=== PATIENT | male | born 1960 | race Caucasian/White ===

== ENCOUNTER 2017-11-14 05:21 | Inpatient (IN) ==
[2017-11-14] MEDS ORDERED: Aspirin 81 MG TAB.CHEW PO ONE (05:33)
--- NOTE | 2017-11-14 05:39 | Emergency Department Note ---
Disposition Clinical Impression: ST elevation myocardial infarction (STEMI) Qualifiers: Involved coronary artery: unspecified coronary artery Qualified Code(s): I21.3 - ST elevation (STEMI) myocardial infarction of unspecified site Disposition: Admitted As Inpatient Condition: Serious Chest Pain HPI - General Chief Complaint: ED Chest Pain Stated Complaint: CP Time Seen by Provider: 11/14/17 05:27 Source: patient Mode of arrival: private vehicle Limitations: no limitations Vital Signs Reviewed: Yes Nursing Notes Reviewed: Yes - History of Present Illness HPI Narrative: 57-year-old male with a medical history presents to the ER with a chief complaint of chest pain. Reports symptoms began at 2:30 this morning. They woke him from sleep. Reports a dull ache over the center of his chest with radiation into both arms. No prior history of coronary artery disease. He does not smoke. No hypertension diabetes or high cholesterol. Reports a prior stress test but is unsure of the results. States pain has not changed since starting. No other complaints. Pt complaint: chest pain Onset (ago): hour(s) Time: 02:30 Duration: constant Onset: during rest Pain Location: substernal Severity: moderate Severity scale (1-10): 8 Quality: aching Pain Radiation: RUE, LUE Improves with: nothing Worsens with: nothing Associated symptoms: Reports: nausea. Denies: vomiting, diaphoresis, dyspnea Treatments prior to arrival chest pain: aspirin - Related Data On Oral Contraceptives: No Allergies Allergy/AdvReac Type Severity Reaction Status Date / Time Penicillins Allergy See Verified 11/14/17 05:31 Comments All systems ED: reviewed and negative except as stated. Cardiovascular: Reports: chest pain Respiratory: Denies: cough, dyspnea Gastrointestinal: Reports: nausea. Denies: abdominal pain, vomiting Chest Pain PMH - Past Medical History Medical history: Reports: thyroid disease - Social History Smoking Status: Never smoker Alcohol use: Reports: none Drug use: Reports: none Physical Exam - General Limitations: no limitations General appearance: alert, in no apparent distress - Head Head exam: atraumatic, normocephalic - Eye Eye exam: Present: normal appearance - ENT ENT exam: normal exam - Neck Neck exam: Present: normal inspection - Chest Chest inspection: Present: normal inspection, symmetric chest wall rise. Absent : tenderness - Respiratory Respiratory exam: Present: normal lung sounds bilaterally - Cardiovascular Cardiovascular exam: Present: regular rate, normal rhythm, normal heart sounds - Abdominal Exam Abdominal exam: Present: soft, Non-Tender. Absent: tenderness - Extremities Exam Extremities exam: Present: normal inspection, full ROM - Expanded Upper Extremity Exam Shoulder exam: Present: normal inspection, full ROM Arm exam: Present: normal inspection, full ROM Elbow exam: Present: normal inspection, full ROM Forearm/Wrist exam: Present: normal inspection, full ROM Hand exam: Present: normal inspection, full ROM - Expanded Lower Extremity Exam Hip/Pelvis exam: Present: normal inspection, full ROM Upper leg exam: Present: normal inspection, full ROM Knee exam: Present: normal inspection, full ROM Lower leg exam: Present: normal inspection, full ROM Ankle exam: Present: normal inspection, full ROM Foot/toe exam: Present: normal inspection, full ROM - Skin Skin exam: Present: warm, dry Course Course Narrative: Patient seen and examined. Vital signs reviewed. EKG concerning for STEMI. A STEMI alert called at 05:32. EKG sent to scale manager and will speak with them in consultation. - Consultations Consultation #1: Spoke with the on-call scale manager Dr. Oneill. Discussed the patient's history as well as sent him the EKG for evaluation. Agrees with STEMI and will be in to see the patient for left heart catheterization. Okay with aspirin and Brilinta. Vital Signs Temperature 99.1 F 11/14/17 05:26 Pulse Rate 72 11/14/17 05:26 Respiratory Rate 18 11/14/17 05:26 Blood Pressure 182/115 11/14/17 05:26 O2 Sat by Pulse Oximetry 99 11/14/17 05:26 Temperature 99.1 F 11/14/17 05:26 Pulse Rate 66 11/14/17 06:01 Respiratory Rate 18 11/14/17 06:01 Blood Pressure 155/100 11/14/17 06:01 O2 Sat by Pulse Oximetry 97 11/14/17 06:01 Oxygen Delivery Oxygen Delivery Room Air Chest Pain - MDM Narrative Medical decision making narrative: 57-year-old male presents to the ER with a chief complaint of chest pain. We will confirm sleep. Concerning story for ACS. EKG with ST elevations and reciprocal changes. Case discussed with the scale manager. Agreeable with taking the patient to the Environmental Educator for evaluation. - Lab Data Result diagrams: 11/14/17 05:45 Lab Results 11/14/17 11/14/17 Range/Units 05:45 05:45 WBC 12.2 H (4.3-11.1) K/mcL RBC 3.76 L (4.19-5.50) M/mcL Hgb 11.5 L (12.9-16.9) g/dL Hct 34.0 L (37.5-50.1) % MCV 90.4 (83.0-100.0) fL MCH 30.6 (28.0-33.3) pg MCHC 33.8 (31.6-35.5) g/dL RDW 13.5 (11.5-14.5) % Plt Count 248 (140-400) K/mcL MPV 10.8 (9.4-12.4) fL Immature Gran % 0.3 (0-4) % Seg Neutrophils % 55.2 % Lymphocytes % 20.3 % Monocytes % 8.2 % Eosinophils % 15.3 % Basophils % 0.7 % Neutrophils # 6.7 (1.6-8.9) K/mcL Lymphocytes # 2.5 (0.6-4.6) K/mcL Monocytes # 1.0 (0.0-1.3) K/mcL Eosinophils # 1.9 H (0.0-0.6) K/mcL Basophils # 0.1 (0.0-0.2) K/mcL PT 11.6 (9.4-12.1) Seconds INR 1.1 APTT 31.9 (26.0-36.0) Seconds - EKG Data EKG attestation: Yes I reviewed and interpreted this EKG. EKG results narrative: EKG demonstrates sinus rhythm with a rate of 67 bpm. Normal axis. Normal intervals. Normal R-wave progression. ST elevations in leads V1V4 with reciprocal changes in the inferior leads with T-wave inversions. No prior EKG for comparison. STEMI Heart Score - Score History: Highly Suspicious EKG: Non Specific repolarisation Disturbance Age: 45-65 Risk Factors: No risk factors known Critical Care Time Critical Care Time: Yes Total Critical Care Time: 40 Attestation: Critical care performed: Time is exclusive of separately billable procedures. Time includes: direct patient care, patient reassessment, coordination of patient care, interpretation of data (laboratory data, radiology data, and respiratory data), review of patient's medical records, medical consultation and documentation of patient care. Procedures included in critical care time: Procedures excluded from critical care time: Attestation Statement - Attestation Attestation: I, Jin Cotton MD, personally evaluated this patient and discussed their management with the resident physician. I reviewed the resident's note and agree with the documented findings, medical decision making, and plan of care. 57-year-old male presents to the emergency department with a complaint that he awoke from sleep about 2:30 AM this morning with heaviness and pressure and discomfort in his mid chest. This radiates to both arms and he states both arms just feel very heavy and waited. Some mild shortness of breath. No diaphoresis. Some nausea. No prior history of coronary artery disease. He states he has borderline hypertension but is not on medication. He has been recently having some chest discomfort which he felt was due to stress. He saw his PCP and recently had a stress test. On examination patient is a well-developed well-nourished male in no acute distress. He is alert and oriented 3. There is no cyanosis or diaphoresis. Chest is nontender to palpation. Breath sounds are clear and equal bilaterally. There are rate and rhythm. Abdomen is soft and nontender with normal bowel sounds. There is 1+ pedal edema bilaterally. EKG shows a sinus rhythm with a ventricular rate of 67. There is acute ST segment elevations in V1 through V4 consistent with an acute anteroseptal NM with some minimal inferior ST elevations in inferior T-wave inversions. Findings consistent with STEMI. A STEMI alert was called and the scale manager, Dr. Oneill, reviewed the EKG and is coming in to take the patient to the cardiac catheter lab for intervention. Patient received aspirin, Brilinta, and heparin.
[2017-11-14] MEDS ORDERED: *HR* Ticagrelor 90 MG TABLET PO ONE (05:43)
[2017-11-14] MEDS: *HR* Ticagrelor 90 MG TABLET PO SCH ×2 (05:47→20:52)
[2017-11-14] MEDS ORDERED: *HR* Heparin 5,000 UNIT/ML VIAL IVP ONE (05:47)
[2017-11-14] MEDS ORDERED: *HR* Heparin 5,000 UNIT/ML VIAL IVP PRN ×2 (05:47)
[2017-11-14] MEDS ORDERED: *HR* Morphine 2 MG/ML SYRINGE IVP ONE (05:52)
[2017-11-14] MEDS ORDERED: Verapamil 5 MG/2 ML VIAL ONE (05:55)
[2017-11-14] MEDS ORDERED: Heparin 1,000 UNITS/500 mL 500 ML ONE (05:55)
[2017-11-14] MEDS ORDERED: *HR* Midazolam HCl 5 MG/5 ML VIAL IVP ONE (05:55)
[2017-11-14] MEDS ORDERED: 0.9 % Sodium Chloride 1,000 ML ONE ×2 (05:55→06:22)
[2017-11-14] MEDS ORDERED: *HR* Heparin 10,000 UNIT/10 ML VIAL ONE (05:55)
[2017-11-14] MEDS ORDERED: ISOVUE-370 200 ML INFUS..BTL IV ONE ×2 (05:56→06:49)
[2017-11-14] MEDS ORDERED: Nitroglycerin 1,000 MCG/10 ML VIAL IV ONE (05:56)
[2017-11-14] MEDS ORDERED: *HR* FentaNYL (PF) 250 MCG/5 ML VIAL ONE (05:56)
[2017-11-14 05:57] LABS: Basophils # 0.1 K/mcL (0.0-0.2); Basophils % 0.7 %; Eosinophils # 1.9 K/mcL (0.0-0.6); Eosinophils % 15.3 %; Hemoglobin 11.5 g/dL (12.9-16.9); Immature Granulocytes % 0.3 % (0-4); Lymphocytes # 2.5 K/mcL (0.6-4.6); Lymphocytes % 20.3 %; Mean Corpuscular HGB Conc 33.8 g/dL (31.6-35.5); Mean Corpuscular Hemoglobin 30.6 pg (28.0-33.3); Mean Corpuscular Volume 90.4 fL (83.0-100.0); Mean Platelet Volume 10.8 fL (9.4-12.4); Monocytes % 8.2 %; Neutrophils # 6.7 K/mcL (1.6-8.9); Platelet Count 248 K/mcL (140-400); Red Blood Count 3.76 M/mcL (4.19-5.50); Red Cell Distribution Width 13.5 % (11.5-14.5); Segmented Neutrophils % 55.2 %
[2017-11-14] MEDS ORDERED: Heparin 25,000 UNIT/500 ML D5W 25,000 UNIT/500 ML BAG IVC SCH (06:00)
[2017-11-14 06:01] LABS: INR 1.1; Prothrombin Time 11.6 Seconds (9.4-12.1)
[2017-11-14 06:03] LABS: Activated Partial Thrombo Time 31.9 Seconds (26.0-36.0)
[2017-11-14] MEDS ORDERED: Tirofiban 12.5 MG/250ML 12.5 MG/250 ML BAG ONE (06:46)
[2017-11-14 07:24] LABS: BUN/Creatinine Ratio 17 (6-26); Blood Urea Nitrogen 19 mg/dL (6-20); Calcium 8.8 mg/dL (8.6-10.3); Carbon Dioxide 26 mEq/L (23-29); Chloride 104 mEq/L (98-107); Glucose 124 mg/dL (70-105); Osmolality,Calculated 286 (280-300); Potassium 4.3 mEq/L (3.5-5.1); Sodium 136 mEq/L (136-145); eGFR For African Americans > 60 (> 60); eGFR For Non-African Americans > 60 (> 60)
--- NOTE | 2017-11-14 07:35 | Invasive Diagnostic Lab Proc ---
Name: Yusef Morales Date of Study: 11/14/2017 Date: 1960 Ht: 64.2in Medical Record#: [id number] Age: 57 Wt: 169.98lb Gender: Male BSA: 1.83 Order #: [id number] BMI: 29.02 Physicians Procedure Physician: Escobar Oneill MD, [facility] Referring MD: Referring MD: Staff Name Position Time In Mayra Stockton RN Monitor 06:33 AM Rashid Perez RN Bell Tier 06:33 AM Noemi Tillman RT (R) Scrub 06:33 AM Indications Indication STEMI Procedures Performed Procedure L HRT ARTERY/VENTRICLE ANGIO PRQ CARD REVASC IN 1 VSL Pre-Procedure Checklist Informed consent is complete signed and on chart. H&P is on chart. ID band is on and ID verified with patient. Patient NPO for procedure The procedure was described for the patient and questions were answered. Blood Pressure: 150/92 ECG is on chart. Rhythm: NSR Plan of Care Patient will tolerate the procedure without complications. Adequate level of comfort will be maintained. Hemodynamics will remain stable Patient will recover from procedure without complications. Respiratory function will be maintained. Cardiac rhythm will remain stable. Patient temperature will be maintained. Patient and/or family have verbalized understanding of the procedure. Patient Education Chief Complaint/Reason for Test: Cardiac Cath Developmental Category: Adult (18-64 years) Learning Barriers: None Education Needs: Procedure Education Method: Verbal Information Taught: Cardiac Cath Educational Evaluation: Able to repeat information Intravenous Access Time IV Size Location DC'd Fluid/Drip Rate Units RN 06:13 AM 20g 1 1/4" Patent On Arrival Rt Hand 06:13 AM 18g 1 1/4" Patent On Arrival Lt Antecubital 0.9NaCl 25 ml/hr Rashid Perez RN Allergies Penicillins Vital Signs Time BP (mmHg) HR (bpm) O2 Sat. RR (bpm) LOC 06:28 AM / % 5 = Fully awake and oriented or at pre-proc level 06:34 AM / % 4 = Oriented but drowsy 06:34 AM / % 4 = Oriented but drowsy 06:49 AM / % 4 = Oriented but drowsy 06:24 AM 154 / 109 66 100 % 13 06:29 AM 154 / 109 76 96 % 18 06:34 AM 150 / 98 76 89 % 14 06:39 AM 151 / 98 74 91 % 35 06:44 AM 144 / 84 73 92 % 28 06:49 AM 149 / 85 73 95 % 20 06:54 AM 138 / 84 79 92 % 23 06:59 AM 150 / 92 73 94 % 24 Procedural Medications Time Medication Dose Units Method Given By 06:28 AM Oxygen 2 L/min nasal cannula Rashid Perez RN 06:28 AM Versed 2 mg Intravenous Rashid Preez RN 06:28 AM Fentanyl 2 mcg Intravenous Rashid Perez RN 06:31 AM Lidocaine 2% 1 ml Subcutaneous Escobar Oneill MD, FAC 06:31 AM Heparin 1000 units Nitroglycerin 200 mcg Verapamil 2.5 mg Intraarterial Escobar Oneill MD, FAC 06:34 AM Oxygen 5 L/min nasal cannula Rashid Perez RN 06:38 AM Nitroglycerin 200 mcg Intracoronary Escobar Oneill MD 06:49 AM Aggrastat Bolus: 37.5 ml Intravenous Rashid Perez RN 06:50 AM Aggrastat 12.5mg/250ml 13.5 ml/hr Intravenous Rashid Perez RN 06:54 AM Nitroglycerin 200 mcg Intracoronary Escobar Oneill MD ASA Classification: CLASS II- Mild systemic disease (i.e. well-controlled diabetes, hypertension, asthma, cigarette smoking) Emergent Procedure: ASA score is assumed Feliberto Score Preprocedure Postprocedure Activity 2- Moves 4 extremities sustained head lift Activity 2- Moves 4 extremities sustained head lift Circulation 2- SBP +/= 20 points of pre-anesthetic level Circulation 2- SBP +/= 20 points of pre-anesthetic level Consciousness 2- Awake and alert oriented x 3 Consciousness 2- Awake and alert oriented x 3 O2 Saturation 2- Able to maintain O2 satruation of 92% on room air O2 Saturation 2- Able to maintain O2 satruation of 92% on room air Respiratory 2- Able to deep breathe and cough well Respiratory 2- Able to deep breathe and cough well Total Score 10 Total Score 10 Contrast Agent: Isovue Diagnostic Contrast: 144 ml Total Contrast: 144 ml Fluoro Dose: 439 mGy Activated Clotting Time Time Seconds to Clot 06:45 AM 308 Procedure Log Time Note Enter By 06:11 AM CathStat 06:19 AM Pt arrived to prosthetics lab technician 2 at 06:19 csmith 06:22 AM Physician arrived 06:22 scoates 06:22 AM Barry and sandip completed scoates 06:22 AM Sign in performed according to hospital policy. scoates 06:23 AM Procedure start :23 scoates 06: AM Case Start 06: AM Vitals capture started with the following parameters, Patient=Adult, Interval=5 min, Initial Osrwetkw=877 mmHg, Deflation Rate=5 mmHg, Cuff placed on Right Arm 06:24 AM HR=66 bpm, CFPG=456/109 mmhg, ZyE5=887.0 %, Resp=13 B/min 06:27 AM Time out performed according to hospital policy csmith AM Time: : Patient comfortable and pain free: Yes csmith : AM Time: :LOC: 5 = Fully awake and oriented or at pre-proc level csmith : AM Time: : Oxygen on at 2 L/min per nasal cannula by Rashid Perez RN csmith AM Time: : Versed 2 mg Intravenous [facility] AM Time: : Fentanyl 2 mcg Intravenous Given by Rashid Perez RN [facility] : AM Patient charges- Angio tray pack, Navilyst 3mm J, Pulse Oximetry and ACIST tubing and transducer csmith : AM Case Delayed no csmith :29 AM HR=76 bpm, UOJQ=335/109 mmhg, SpO2=96.0 %, Resp=18 B/min 06:30 AM Pressure channel 1 zeroed. 06:31 AM Time: 06:31 1 ml Lidocaine 2% to right radial Subcutaneous Given by Escobar Oneill MD, FACC scoates 06:31 AM Access obtained by percutaneous puncture. 6Fr 10cm Terumo Glidesheath sheath placed in right Radial artery. [id number] scoates 06:31 AM Time: 06:31 Patient given 1,000 units Heparin, 200 mcg Nitroglycerin, and 2.5 mg Verapamil Intraarterial by Escobar Oneill MD, FACC. This is given to reduce risk of vessel spasm and thrombosis. scoates 06:32 AM 0.035 145cm VSI Zurdo-Torque wire [id number] scoates 06:32 AM Recorded Pressure: Ao, HR=73, Condition=Condition 1 (Aorta) Ao 138/82/107 06:32 AM 6Fr CLS 3.0 Runway guide catheter was used to cannulate the PCI vessel successfully. reused? No scoates 06:32 AM Patient charges- Angio tray pack, Navilyst 3mm J, Pulse Oximetry and ACIST tubing and transducer scoates 06:32 AM ASA Class CLASS II- Mild systemic disease (i.e. well-controlled diabetes, hypertension, asthma, cigarette smoking) scoates 06:33 AM Hair removed from procedure site in procedure lab using clippers. Right wrist prepped with Chloraprep by Mayra Stockton RN, then patient was draped. Skin intact. scoates 06:33 AM Case Delayed no scoates 06:33 AM Mayra Stockton RN Position: Monitor Time in: 06:33 scoates 06:33 AM Rashid Perez RN Position: Bell Tier Time in: 06:33 scoates 06:33 AM Noemi Tillman RT (R) Position: Scrub Time in: 06:33 scoates 06:34 AM Time: 06:34 Patient comfortable and pain free: Yes scoates 06:34 AM Time: 06:34LOC: 4 = Oriented but drowsy scoates 06:34 AM Time: 06:34 Oxygen on at 5 L/min per nasal cannula by Rashid Perez RN scoates 06:34 AM HR=76 bpm, XVEP=035/98 mmhg, SpO2=89.0 %, Resp=14 B/min, Comment=sr 06:34 AM LCA angiography performed in multiple views. scoates 06:[address] [place] 180cm guide wire across target lesion- successful. reused? No scoates 06:35 AM 2.25 mm x 8 mm Emerge Monorail balloon across target lesion- successful. reused? No scoates 06:35 AM Recorded Pressure: Ao, HR=74, Condition=Condition 1 (Aorta) Ao 132/84/107 06:36 AM Balloon inflated @ 8 [place] for 10 seconds scoates 06:37 AM Balloon catheter removed intact. scoates 06:37 AM Guide wire removed intact. scoates 06:38 AM Time: 06:38 Nitroglycerin 200 mcg Intracoronary Given by Escobar Oneill MD scoates 06:38 AM Guide catheter removed intact. scoates 06:38 AM 6Fr JR4 Runway guide catheter was used to cannulate the PCI vessel successfully. reused? No scoates 06:39 AM Recorded Pressure: Ao, HR=78, Condition=Condition 1 (Aorta) Ao 94/44/68 06:39 AM RCA angiography performed in multiple views. scoates 06:39 AM HR=74 bpm, AAOG=131/98 mmhg, SpO2=91.0 %, Resp=35 B/min, Comment=sr 06:40 AM Recorded Pressure: Ao, HR=74, Condition=Condition 1 (Aorta) Ao 143/86/112 06:41 AM physician reviewing films scoates 06:42 AM act drawn and running scoates 06:43 AM Guide catheter removed intact. scoates 06:43 AM 5Fr Pigtail catheter inserted over the wire DNC scoates 06:43 AM Pressure channel 1 zero failed. 06:43 AM Pressure channel 1 zeroed. 06:44 AM Recorded Pressure: LV, HR=76, Condition=Condition 1 (Left Ventricle) LV 158/13/23 06:44 AM Catheter selectively placed in left ventricle scoates 06:44 AM Bolus angiogram of left Ventricle complete: 10 ml/sec for a total of 30 mls scoates 06:44 AM Recorded Pressure: LV, Ao, HR=76, Condition=Condition 1 (Left Ventricle) LV 151/8/25, (Aorta) Ao 150/89/118 06:44 AM HR=73 bpm, IGHZ=030/84 mmhg, SpO2=92.0 %, Resp=28 B/min, Comment=sr 06:45 AM Catheter removed scoates 06:45 AM At 06:45 the ACT was 308 seconds. scoates 06:46 AM 6Fr CLS 3.0 Runway guide catheter was used to cannulate the PCI vessel successfully. reused? Yes scoates 06:46 AM Lesion found in Prox LAD. Pre Stenosis: 80 Pre TALA Flow: 3: Complete and Brisk Flow/Perfusion scoates 06:46 AM Coronary Dominance: right scoates 06:46 AM Recorded Pressure: Ao, HR=76, Condition=Condition 1 (Aorta) Ao 159/99/126 06:48 AM marvel wire reinserted scoates 06:48 AM 3.0mm x 16mm Synergy drug-eluting stent across target lesion- successful Lot #[id number] scoates 06:49 AM Time: 06:34LOC: 4 = Oriented but drowsy scoates 06:49 AM Time: 06:34 Patient comfortable and pain free: Yes scoates 06:49 AM Time: 06:49 Aggrastat Bolus: 37.5 ml Intravenous Given by Rashid Perez RN Britton pump scoates 06:49 AM Stent deployed @ 16 [place] for 18 seconds scoates 06:49 AM HR=73 bpm, GWNI=858/85 mmhg, SpO2=95.0 %, Resp=20 B/min, Comment=sr 06:50 AM Time: 06:50 Aggrastat 12.5mg/250ml 13.5 ml/hr Intravenous Given by Rashid Perez RN Britton pump scoates 06:50 AM Recorded Pressure: Ao, HR=73, Condition=Condition 1 (Aorta) Ao 147/102/123 06:51 AM Stent delivery system removed intact. scoates 06:52 AM 3.25 mm x 8mm NC Trek Rx balloon across target lesion- successful. reused? No scoates 06:53 AM Balloon inflated @ 1 [place] for 6 seconds scoates 06:54 AM Time: 06:54 Nitroglycerin 200 mcg Intracoronary Given by Escobar Oneill MD scoates 06:54 AM HR=79 bpm, OCQT=352/84 mmhg, SpO2=92.0 %, Resp=23 B/min, Comment=sr 06:55 AM Recorded Pressure: Ao, HR=79, Condition=Condition 1 (Aorta) Ao 138/97/117 06:57 AM .014 [place] 182cm guide wire across target lesion- successful. reused? No scoates 06:59 AM Balloon catheter removed intact. scoates 06:59 AM Guide wire removed intact. x2 scoates 06:59 AM HR=73 bpm, OZZH=406/92 mmhg, SpO2=94.0 %, Resp=24 B/min 07:02 AM Procedure completed at 07:02 scoates 07:02 AM Did you address TALA flow and Dominance? Yes scoates 07:03 AM Sign out completed: Radiation Dose 439 mGy Fluoro Time: 8.3 Isovue 370 - 200ml contrast 144 ml given by Escobar Oneill MD, [facility]. Complications: NoneCardiac Rehab Consult needed: YesConfirmed administered medications: Yes scoates 07:03 AM Isovue 370 - 200ml,1 Bottle(s) used. scoates 07:03 AM Arterial sheath pulled, Vasc Band closure device used and was Successful S/N. scoates 07:03 AM 10 ml air in Vasc Band. scoates 07:03 AM Estimated Blood Loss: less than 20cc scoates 07:03 AM Post ECG NSR scoates 07:03 AM Post Blood Pressure 138/97 scoates 07:04 AM Time: 06:49 Patient comfortable and pain free: Yes scoates 07:04 AM Time: 06:49LOC: 4 = Oriented but drowsy scoates 07:05 AM 07:05 Post Pulses Bilateral DP & PT 2+ scoates 07:05 AM Information taught Cardiac Cath and Vasc Band scoates 07:05 AM Education needs Procedure, Plan of Care, and Responsibilities of Patient in Care scoates 07:05 AM Learning barriers :None scoates 07:05 AM Education Methods Verbal scoates 07:05 AM Education evaluation Able to repeat information scoates 07:05 AM Site status No bleeding/hematoma - Rt Wrist as reported by Noemi Tillman RT (R) at 07:05 scoates 07:06 AM Plavix, Effient or Brilinta given No, given in ED scoates 07:06 AM Delay to floor No scoates 07:06 AM Family placed in consult room. scoates 07:06 AM Fluoro Time: 8.3 scoates 07:06 AM Isovue 370 - 200ml contrast 144 ml given by Escobar Oneill MD, [facility]. scoates 07:06 AM Radiation Dose 439 mGy scoates 07:07 AM Report given to Nirali TOTH Pt taken to ICU Room #2. 07:07 scoates 07:08 AM Lesion found in Proximal Circumflex. Pre Stenosis: 60 Pre TALA Flow: scoates 07:19 AM Proximal Left Anterior Descending Coronary Artery with 80% stenosis. If graft is supplying this territory, 0 % stenosis. scoates Complications Complication None Hemodynamics Pressures Site Systolic/A Wave Diastolic/V Wave Mean AO 138 82 107 AO 132 84 107 AO 94 44 68 AO 143 86 112 LV 158 13 23 LV 151 8 25 AO 150 89 118 AO 159 99 126 AO 147 102 123 AO 138 97 117 Post Procedure Information Blood Pressure: 138/97 mmHg Rhythm: NSR Post procedural instructions were given Closure Device Time Device Success/Fail 11/14/2017 7:06:00 AM Mechanical Compression Successful Site Checks Time Location Status Staff Sheath In? Note 07:05 AM Rt Wrist No bleeding/hematoma Noemi Tillman RT (R) Pulses Time Site Pre-Procedure Post-Procedure Note 11/14/2017 6:22:00 AM Bilateral DP & PT 2+ 7:05:00 AM Bilateral DP & PT 2+ Updated by Mayra Rose RN on 11/14/2017 7:23:48 AM electronically signed on 11/14/2017 7:24:11 AM with status of Final
[2017-11-14] MEDS ORDERED: Ondansetron 4 MG/2 ML VIAL IVP PRN (07:37)
--- NOTE | 2017-11-14 07:37 | Pre-Sedation Evaluation ---
Pre-sedation evaluation - Pre-sedation checklist Date of procedure: 11/14/17 Procedure: [facility] Recent Vitals: Last Vital Signs Temp 99.1 F 11/14/17 05:26 Pulse 66 11/14/17 06:01 Resp 18 11/14/17 06:01 BP 155/100 11/14/17 06:01 Pulse Ox 97 11/14/17 06:01 H&P (including ROS) documented in medical record: Yes Previous reaction to sedatives/anesthetics: Unknown Dietary Status: unknown Airway Assessment: Patient can open mouth completely, TMJ function normal Dentition: No loose teeth or bridges ASA Classification *see protocol: CLASS II-Mild systemic disease, E-EMERGENCY- Add to any of the above to indicate emergent Plan of Care: Pt appropriate candidate for procedure/moderate/conscious sedation , Risks/benefits of procedure/sedation discussed w/ patient/family, If not NPO; Risk of intake outweiged by necessity to perform procedure
[2017-11-14] MEDS ORDERED: Tirofiban 12.5 MG/250ML 12.5 MG/250 ML BAG IVC SCH (07:45)
[2017-11-14] MEDS: Aspirin 81 MG TAB.CHEW PO SCH (09:03)
--- NOTE | 2017-11-14 09:50 | Cardiology History & Physical ---
Date of Encounter: 11/14/17 Time of Encounter: 08:30 Assessment and Plan (1) ST elevation myocardial infarction (STEMI) Current Visit: Yes Status: Acute Acute anterior STEMI. Taken emergently to the cath s/p successful PTCA/GAMALIEL to pLAD; otherwise non-obstructive CAD. Transferred to the ICU, continue aggrastat per Dr. Oneill orders. Continue asa, statin, betablocker. Uninterrupted DAPT (asa + brilinta) for at least 1 year, pt. verbalized understanding. Continuous cardiac monitoring, anticipate step down out of ICU tomorrow if stable. Bedrest today. Right radial cath site--mgmt per TR band protocol. Check echocardiogram. ECG in AM. BMP, CBC in AM. Cardiac rehab. Qualifiers: Involved coronary artery: LAD coronary artery Qualified Code(s): I21.02 - ST elevation (STEMI) myocardial infarction involving left anterior descending coronary artery (2) Hypothyroidism Current Visit: Yes Status: Acute TSH 106 10/15/17, recently started on Levothyroxine by PCP. Continue levothyroxine. Qualifiers: Hypothyroidism type: unspecified Qualified Code(s): E03.9 - Hypothyroidism , unspecified (3) Essential hypertension Current Visit: Yes Status: Acute New diagnosis. Betablocker started today. Adjust medications accordingly. (4) Hyperlipidemia Current Visit: Yes Status: Acute Start statin. LDL 10/07/16: 193. Repeat fasting LP in AM. Check AST/ALT. Qualifiers: Hyperlipidemia type: mixed hyperlipidemia Qualified Code(s): E78.2 - Mixed hyperlipidemia History of Present Illness Chief complaint: Chest pain HPI: Mr. Morales is a 57 year old male with PMHx significant for hypothyroidism who presented to the ED with complaints of chest pain. He reports he woke up around 2:30 AM to take his dogs outside when he developed severe midsternal chest heaviness/pressure with radiation to bilateral arms. Associated symptoms include bloating/indigestion. He reports he sat down and tried to go back to sleep, pain continued for the next hour. He took x4 baby ASA which did not improve pain and then went to the ED. Upon arrival to ED, ECG confirmed acute STEMI. 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 Prior CV testing: TTE 10/25/17: LVEF 55%, mild LVDD, mild MR, normal wall motion Exercise nuclear 10/27/17: perfusion imaging negative for ischemia or infarct , exercise ECG at peak HR limited by artifact. Past Med Surg Social Fam HX - Past Medical History Attestation: Yes The following information was validated with the patient. Source: patient Medical history: thyroid disease - Social History Smoking Status: Never smoker Smokeless Tobacco Status: No Alcohol use: none Drug use: none - Family History Father Hx Family Cardiac Disorders: Yes (CAD, [place]) Mother Hx Family Cardiac Disorders: Yes (CAD, [place]) Medications and Allergies No Known Home Drugs 11/14/17 [History] 3 Allergy/AdvReac Type Severity Reaction Status Date / Time Penicillins Allergy Rash Verified 11/14/17 08:23 All Systems Review: A 10-system review of systems was performed and is negative for pertinent findings except as documented above in the HPI. - Cardiovascular Cardiovascular: as per HPI Physical Examination General: Conversant, No Apparent Distress HEENT: Atraumatic, Normocephaly, Mucus Membranes Moist Neck: No JVD, Normal carotid pulses Cardiac: Reg Rate and Rhythm, Normal S1 and S2, No Murmur Lungs: Normal Breath Sounds, No Wheeze, Rales, Rhonchi Neuro: Alert and responsive, No focal deficits noted Abdomen: Soft, Non-Tender Skin: No rashes noted on visualized skin Musculoskeletal: No Chest Wall Tenderness Extremities: No Clubbing, No Cyanosis, No Edema, Normal Pulses Other: right radial cath: TR band in place. Results 11/14/17 05:45 11/14/17 06:16 Active Medications Acetaminophen (Tylenol) 500 mg PO Q6HR PRN PRN Reason: Mild Pain Stop: 05/16/18 07:38 Aspirin (Aspirin) 81 mg PO DAILY [facility] Stop: 05/16/18 09:01 Last Admin: 11/14/17 09:03 Dose: 81 mg Diphenhydramine HCl (Benadryl) 25 mg PO HS PRN PRN Reason: Insomnia Stop: 05/16/18 07:43 Heparin Sodium (Porcine) (Heparin) 5,000 unit SQ Q8HCO [facility] Stop: 05/16/18 14:01 Metoprolol Tartrate (Lopressor) 25 mg PO BID [facility] Stop: 05/16/18 09:01 Last Admin: 11/14/17 09:02 Dose: 25 mg Ondansetron HCl (Zofran) 4 mg IVP Q8HR PRN PRN Reason: Nausea And Vomiting Stop: 05/16/18 07:38 Rosuvastatin Calcium (Crestor) 40 mg PO HS [facility] Stop: 05/16/18 21:01 Ticagrelor (Brilinta) 90 mg PO BID [facility] Stop: 05/16/18 09:01 Last Admin: 11/14/17 05:47 Dose: 90 mg - Imaging and Cardiology Stress Test: report reviewed Echo: pending, report reviewed Cardiac cath: report reviewed - EKG Interpretation EKG results cardiology: personally reviewed
[2017-11-14] MEDS ORDERED: Nitroglycerin 0.4 MG TAB.SUBL SL PRN (10:11)
[2017-11-14] MEDS: *HR* Heparin 5,000 UNIT/ML VIAL SQ SCH ×2 (14:22→20:54)
[2017-11-15 03:30] LABS: Basophils # 0.1 K/mcL (0.0-0.2); Basophils % 0.6 %; Eosinophils # 1.4 K/mcL (0.0-0.6); Eosinophils % 12.2 %; Hematocrit 33.3 % (37.5-50.1); Hemoglobin 11.3 g/dL (12.9-16.9); Immature Granulocytes % 0.6 % (0-4); Lymphocytes # 1.9 K/mcL (0.6-4.6); Lymphocytes % 16.1 %; Mean Corpuscular HGB Conc 33.9 g/dL (31.6-35.5); Mean Corpuscular Hemoglobin 30.4 pg (28.0-33.3); Mean Corpuscular Volume 89.5 fL (83.0-100.0); Mean Platelet Volume 10.8 fL (9.4-12.4); Monocytes # 0.8 K/mcL (0.0-1.3); Monocytes % 7.1 %; Neutrophils # 7.5 K/mcL (1.6-8.9); Platelet Count 232 K/mcL (140-400); Red Blood Count 3.72 M/mcL (4.19-5.50); Red Cell Distribution Width 13.3 % (11.5-14.5); Segmented Neutrophils % 63.4 %
[2017-11-15 03:54] LABS: BUN/Creatinine Ratio 14 (6-26); Blood Urea Nitrogen 13 mg/dL (6-20); Calcium 8.7 mg/dL (8.6-10.3); Carbon Dioxide 23 mEq/L (23-29); Chloride 104 mEq/L (98-107); Glucose 105 mg/dL (70-105); Osmolality,Calculated 280 (280-300); Potassium 3.9 mEq/L (3.5-5.1); Sodium 135 mEq/L (136-145); eGFR For African Americans > 60 (> 60); eGFR For Non-African Americans > 60 (> 60)
[2017-11-15 03:56] LABS: Chol/HDL Ratio 5.7 (0-4.9)
[2017-11-15] MEDS: *HR* Heparin 5,000 UNIT/ML VIAL SQ SCH ×3 (06:14→20:47)
[2017-11-15] MEDS: *HR* Ticagrelor 90 MG TABLET PO SCH ×2 (09:00→20:46)
[2017-11-15] MEDS: Aspirin 81 MG TAB.CHEW PO SCH (09:01)
--- NOTE | 2017-11-15 13:03 | Cardiology Progress Note ---
Date of Encounter: 11/15/17 Time of Encounter: 11:30 Assessment and Plan (1) ST elevation myocardial infarction (STEMI) Current Visit: Yes Status: Acute Acute anterior STEMI. Taken emergently to the cath s/p successful PTCA/GAMALIEL to pLAD; otherwise non-obstructive CAD. No chest pain since PCI. Echo pending. Cardiac rehab. Continue asa, statin, betablocker. Uninterrupted DAPT (asa + brilinta) for at least 1 year, pt. verbalized understanding. Right radial cath site stable. Labs stable. Vitals stable. Transfer out of ICU today if bed available. Anticipate d/c home tomorrow. Qualifiers: Involved coronary artery: LAD coronary artery Qualified Code(s): I21.02 - ST elevation (STEMI) myocardial infarction involving left anterior descending coronary artery (2) Hypothyroidism Current Visit: Yes Status: Acute TSH 106 10/15/17, recently started on Levothyroxine by PCP. Continue levothyroxine. Qualifiers: Hypothyroidism type: unspecified Qualified Code(s): E03.9 - Hypothyroidism , unspecified (3) Essential hypertension Current Visit: Yes Status: Acute New diagnosis. Blood pressure acceptable, continue BB. (4) Hyperlipidemia Current Visit: Yes Status: Acute Start statin. LDL 10/07/16: 193. Repeat fasting LP in AM. Check AST/ALT. Qualifiers: Hyperlipidemia type: mixed hyperlipidemia Qualified Code(s): E78.2 - Mixed hyperlipidemia Discussion w patient/family: The assessment and plan as outlined above was discussed with the patient and/or family members who expressed understanding and agreement. All questions were answered. Thank you for involving us in the care of your patient. Please call with any questions. The patient will be discussed and reviewed with Dr. Colby; changes to be made accordingly. Subjective Principal diagnosis: STEMI Interval history: Seen and examined. No complaints overnight including chest pain/pressure or heaviness. States had episode of shortness of breath yesterday, now resolved. Feels may be r/t anxiety. Objective Vital Signs, Last 4 Hours Temp Pulse Resp BP Pulse Ox 11/15/17 12:00 98.6 F 65 18 145/95 98 11/15/17 10:00 70 18 135/76 98 General: Conversant, No Apparent Distress HEENT: Atraumatic, Normocephaly, Mucus Membranes Moist Neck: No JVD, Normal carotid pulses Cardiac: Reg Rate and Rhythm, Normal S1 and S2, No Murmur Lungs: Normal Breath Sounds, No Wheeze, Rales, Rhonchi Neuro: Alert and responsive, No focal deficits noted Abdomen: Soft, Non-Tender Skin: No rashes noted on visualized skin Musculoskeletal: No Chest Wall Tenderness Extremities: No Clubbing, No Cyanosis, No Edema, Normal Pulses Results 11/15/17 02:41 11/15/17 02:41 Lab Results 11/15/17 11/15/17 11/15/17 02:41 02:41 02:41 WBC 11.8 H Hgb 11.3 L Hct 33.3 L Plt Count 232 Sodium 135 L Potassium 3.9 Chloride 104 Carbon Dioxide 23 BUN 13 Creatinine 0.96 Glucose 105 Calcium 8.7 AST 48 H ALT 13 Active Medications Acetaminophen (Tylenol) 500 mg PO Q6HR PRN PRN Reason: Mild Pain Stop: 05/16/18 07:38 Aspirin (Aspirin) 81 mg PO DAILY [facility] Stop: 05/16/18 09:01 Last Admin: 11/15/17 09:01 Dose: 81 mg Diphenhydramine HCl (Benadryl) 25 mg PO HS PRN PRN Reason: Insomnia Stop: 05/16/18 07:43 Heparin Sodium (Porcine) (Heparin) 5,000 unit SQ Q8HCO [facility] Stop: 05/16/18 14:01 Last Admin: 11/15/17 06:14 Dose: 5,000 unit Levothyroxine Sodium (Synthroid) 50 mcg PO 0630 [facility] Stop: 05/17/18 06:31 Last Admin: 11/15/17 06:14 Dose: 50 mcg Metoprolol Tartrate (Lopressor) 25 mg PO BID [facility] Stop: 05/16/18 09:01 Last Admin: 11/15/17 09:01 Dose: 25 mg Nitroglycerin (Nitroglycerin) 0.4 mg SL Q5MIN PRN PRN Reason: Chest Pain Stop: 05/16/18 10:12 Ondansetron HCl (Zofran) 4 mg IVP Q8HR PRN PRN Reason: Nausea And Vomiting Stop: 05/16/18 07:38 Rosuvastatin Calcium (Crestor) 40 mg PO HS [facility] Stop: 05/16/18 21:01 Last Admin: 11/14/17 20:52 Dose: 40 mg Ticagrelor (Brilinta) 90 mg PO BID [facility] Stop: 05/16/18 09:01 Last Admin: 11/15/17 09:00 Dose: 90 mg - Imaging and Cardiology Echo: pending Cardiac cath: report reviewed Other Results: 12 hour tele: avg HR=65 SR. - EKG Interpretation EKG results cardiology: personally reviewed Consult Discharge Plan - Plan Referrals: Escobar Oneill MD [Partnered Physician] - (Cardiology office will call you at home with your follow up appointment) Svetlana Aguilar, [employer] [Advanced Practice Nurse] - 11/21/17 9:30 am
[2017-11-15] MEDS ORDERED: Ondansetron 4 MG/2 ML VIAL IVP PRN (14:30)
[2017-11-15] MEDS ORDERED: Nitroglycerin 0.4 MG TAB.SUBL SL PRN (14:30)
[2017-11-16] MEDS: *HR* Heparin 5,000 UNIT/ML VIAL SQ SCH (06:30)
[2017-11-16] MEDS: *HR* Ticagrelor 90 MG TABLET PO SCH (08:42)
[2017-11-16] MEDS ORDERED: Aspirin 81 MG TAB.CHEW PO SCH (09:00)
--- NOTE | 2017-11-16 11:38 | Discharge Summary ---
Date of Encounter: 11/16/17 Time of Encounter: 11:36 - Discharge Diagnosis (1) ST elevation myocardial infarction (STEMI) Priority: Primary Status: Acute Comments: Admitted after acute anterior STEMI. Qualifiers: Involved coronary artery: LAD coronary artery Qualified Code(s): I21.02 - ST elevation (STEMI) myocardial infarction involving left anterior descending coronary artery (2) Hypothyroidism Priority: Secondary Status: Chronic Comments: Known hypothyroidism. ON synthroid. Qualifiers: Hypothyroidism type: unspecified Qualified Code(s): E03.9 - Hypothyroidism , unspecified (3) Essential hypertension Priority: Secondary Status: Chronic Comments: Known HTN. ON beta dick. (4) Hyperlipidemia Priority: Secondary Status: Chronic Comments: On statin. Qualifiers: Hyperlipidemia type: mixed hyperlipidemia Qualified Code(s): E78.2 - Mixed hyperlipidemia - Discharge Medications Prescriptions: Nitroglycerin 0.4 mg SL Q5MIN PRN #15 tab.subl PRN Reason: Chest Pain Aspirin 81 mg PO DAILY #30 tab.chew Levothyroxine [Synthroid] 50 mcg PO 0630 #30 tablet Metoprolol [Lopressor] 12.5 mg PO BID #30 tablet Rosuvastatin [Crestor] 40 mg PO HS #30 tablet Ticagrelor [Brilinta] 90 mg PO BID #60 tablet Home Medications: Aspirin 81 mg PO DAILY #30 tab.chew 11/16/17 [Rx] Levothyroxine [Synthroid] 50 mcg PO 0630 #30 tablet 11/16/17 [Rx] Metoprolol [Lopressor] 12.5 mg PO BID #30 tablet 11/16/17 [Rx] Nitroglycerin 0.4 mg SL Q5MIN PRN #15 tab.subl 11/16/17 [Rx] Rosuvastatin [Crestor] 40 mg PO HS #30 tablet 11/16/17 [Rx] Ticagrelor [Brilinta] 90 mg PO BID #60 tablet 11/16/17 [Rx] Allergies/Adverse Reactions: 3 Allergy/AdvReac Type Severity Reaction Status Date / Time Penicillins Allergy Rash Verified 11/14/17 08:23 Procedures/tests Complete & Pending: Procedures Performed prior 72 hours Category Date Time Status EV echocardiogram Routine Y 11/16/17 07:58 Ordered Date of admission: 11/14/17 08:58 Primary care physician: Carolyn Renee, Discharging clinician: Gwen Hogde Anticipated date of discharge: 11/16/17 - Patient Status Disposition: Home, Self-Care Condition: Good Functional capacity at discharge: independent ambulation Overall status at discharge: patient is progressing back to baseline - Discharge Instructions Follow Up With: Escobar Oneill MD [Partnered Physician] - (Cardiology office will call you at home with your follow up appointment) Svetlana Aguilar CNP [Advanced Practice Nurse] - 11/21/17 9:30 am Additional Instructions: RISK FACTORS: STOP SMOKING: If you smoke, STOP. Smoking or tobacco use significantly increases your risk of heart disease because nicotine causes the arteries to narrow or constrict. It also causes fats to stick to the artery. Your chances of having a heart attack are greatly increased if you continue to smoke. For more information, call the education line for smoking cessation 1-407-IAXJHLU EAT A LOW FAT/CHOLESTEROL/SODIUM DIET: This diet may help reduce your chances of having a heart attack. LIFTING: With affected extremity: Avoid bending, pushing off and lifting more than 2 pounds for 24 hours The following 48 hours, avoid lifting anything more than 5 pounds Avoid strenuous activity or repetitive motions ACTIVITY: You may walk or climb stairs as tolerated You can resume sexual activity as tolerated In general, you are encouraged to engage in a minimum of 30 minutes or more of moderate intensity physical activity, such as brisk walking, daily or at least 3 -4 times weekly BATHING Do not submerge the site into water (bath tub, hot tub, swimming pool, dishes) for 1 week. This can be a source for infection into the blood stream. You may shower after 24 hours SITE CARE: After 24 hours, you may remove the dressing and leave the site open to air. Keep the site clean and dry. Clean gently and pat dry. You can expect bruising and tenderness that gradually resolve within a week or two. Return to work as instructed per your physician Resume driving as instructed per physician Keep all scheduled follow up appointments Resume medications as instructed IMPORTANT: If prescribed a Platelet Aggregation Inhibitor such as, Plavix, Brilinta or Effient: Duration of therapy is minimum one year These medications are often used in combination with Aspirin in prevention of future heart attacks Never discontinue unless consult with your Sebd Teacher STROKE (CVA) Risk factors for a stroke are: Age, cigarette smoking, diabetes, excessive alcohol consumption, family history, high blood pressure, overweight, physical inactivity, prior stroke, heart attack, diagnosis of carotid artery stenosis or other artery disease. Warning signs: Sudden numbness or weakness of the face, arm or leg; especially on one side of the body, sudden confusion, trouble speaking or understanding, sudden trouble seeing in one or both eyes, sudden trouble walking, dizziness, loss of balance or coordination, sudden severe headache with no cause. Call 911 or go to the Emergency Room. CONGESTIVE HEART FAILURE: If you have been diagnosed with Congestive Heart Failure (CHF) and your symptoms return, make an appointment with your physician Weigh yourself daily. Notify your physician if you have a weight gain of two or more pounds in one day or five or more pounds in one week. If you experience any difficulty breathing, please call 911 BLEEDING: Although the risk of bleeding is minimal, it can happen. If you have any bleeding from the site, apply firm pressure above the puncture site for 10-15 minutes. If the bleeding does not stop, continue manual pressure and call 911 Contact [facility] ( ) if: You develop a fever greater than 101 degrees Fahrenheit Your site becomes reddened or has any drainage You have an increase in pain or burning at the site or if a large knot forms at the site. If you experience chest pain, shortness of breath, dizziness, or extreme tiredness, stop the activity and rest. Please notify [facility] office if you experience any of these symptoms and they are not relieved by rest please call 911! - Diet and Activity Activity: increase activity as tolerated, return to work once cleared by your PCP/specialist Diet: low fat, low cholesterol, low salt diet - Hospital Course Hospital course: Mr. Morales is a 57 year old male who was admitted to [facility] after emergent C due to anterior STEMI. Patient underwent stenting to LAD. Patient on asa, brilinta, statin, and beta dick. Educated on importance of dual anti- platelet therapy uninterrupted for at least one year. Patient states understanding. Brilinta assistance card given to pateintCarolina Messina educated to call cardiology for any issues with brilinta at pharmacy, states understanding. BP 100s systolic today, discussed with , metorpolol decreased to 12.5mg BID. Right radial access site without hematoma or ecchymosis. RIght radial access site management education reviewed with patient. Patient states understanding. TTE with LVEF 55-60%. Patient is being prepped for discharge home in stable condition. Patient will follow up with [facility]. Follow up set. - Time Spent with Patient Total time spent providing and/or coordinating discharge services: Less than 30 minutes Physical Examination Vital Signs, Last 4 Hours Temp Pulse Resp BP Pulse Ox 11/16/17 08:35 73 11/16/17 07:51 98.1 F 68 16 98/66 98 General: Conversant, No Apparent Distress HEENT: Atraumatic, Normocephaly, Mucus Membranes Moist Neck: No JVD, Normal carotid pulses Cardiac: Reg Rate and Rhythm, Normal S1 and S2, No Murmur Lungs: Normal Breath Sounds, No Wheeze, Rales, Rhonchi Neuro: Alert and responsive, No focal deficits noted Abdomen: Soft, Non-Tender Skin: No rashes noted on visualized skin, Other (Right radial access site without hematoma or ecchymosis. ) Musculoskeletal: No Chest Wall Tenderness Extremities: No Clubbing, No Cyanosis, No Edema, Normal Pulses
[2017-11-16 12:12] VITALS: BP 104/70
--- NOTE | 2017-11-17 17:34 | Electrocardiograph Report ---
[address] [place] [address] Test Date: 2017-11-14 Pat Name: Yusef Morales Department: 109 Room: 2N13 Gender: M Sec Accountant: : 1960 Requested By: Escobar Oneill Order Number: [id number] Reading MD: Rachelle Ratliff Measurements Intervals [place] Rate: 62 P: 21 MA: 168 QRS: 111 QRSD: 105 T: -39 QT: 409 QTc: 415 Interpretive Statements SINUS RHYTHM POSSIBLE RIGHT VENTRICULAR HYPERTROPHY POSSIBLE INFERIOR MYOCARDIAL INFARCTION, OF INDETERMINATE AGE MODERATE ST-WAVE ABNORMALITY, CONSIDER ANTERIOR ISCHEMIA Electronically Signed On 11-17-2017 17:32:48 EST by Rachelle Ratliff
--- NOTE | 2017-11-17 17:45 | Electrocardiograph Report ---
[address] [place], [place] [address] Test Date: 2017-11-14 Pat Name: Yusef Morales Department: 104 Room: 2N13 Gender: M Sales Data Analyst: : 1960 Requested By: Froilan Maynard Order Number: [id number] Reading MD: Rachelle Ratliff Measurements Intervals [place] Rate: 67 P: 31 NM: 160 QRS: 91 QRSD: 109 T: -30 QT: 363 QTc: 378 Interpretive Statements SINUS RHYTHM BORDERLINE RIGHT AXIS DEVIATION POSSIBLE RECENT INFERIOR [place] ANTEROLATERAL CHANGES MAY REPRESENT ISCHEMIA POSSIBLE ACUTE [place] Electronically Signed On 11-17-2017 17:44:04 EST by Rachelle Ratliff
== END 2017-11-16 15:30 | disposition home or self-care (01) | DRG 247 ==
LOC: EMEROO 05:21 → ICNU 05:21 → 2NNU 11-15 13:55
PROVIDERS: ADMIT Emergency Medicine; ATTEND Internal Medicine Clinical Cardiac Electrophysiology